=== PATIENT | female | born 1960 | race Asian ===

== ENCOUNTER 2024-11-28 09:55 | Observation (INO) | payer SELFPAY ==
[2024-11-28] VITALS (7 sets, daily range): BP systolic 118–140; BP diastolic 54–80; PULSE 59–87; RESP 14–22; TEMP 20.5–36.8; O2SAT 91–97; BMI 22.9
--- NOTE | ~2024-11-28 | XR_ITS ---
EXAMINATION: XR CHEST CLINICAL INFORMATION: sOB COMPARISON: None available. TECHNIQUE: PA and lateral views. FINDINGS: Prominence of the interstitial markings. Haziness in patchy opacity left lower hemithorax. Blunting of the costophrenic angles bilaterally. Heart silhouette is not enlarged. Calcified plaque thoracic aorta. Mild multilevel thoracic spondylosis. Osteopenia versus osteoporosis. Degenerative changes in the shoulders. XR/XR chest 2V IMPRESSION: Pulmonary edema with bilateral pleural effusions, (right. Superimposed acute airspace disease cannot be excluded. Electronically signed by: Andrew Ordaz MD 11/28/2024 10:54 AM EDT
--- NOTE | ~2024-11-28 | CT_ITS ---
EXAMINATION: CT ANGIOGRAM CHEST CLINICAL INFORMATION: SOB, abnormal CXR, recent travel COMPARISON: None available. TECHNIQUE: Multiple axial images were obtained through the chest after the administration of 65 mL of Omnipaque 350 intravenous contrast. Extensive vascular post-processing including two-dimensional and three-dimensional reformatted images were created and reviewed on an independent workstation. This CT examination was performed using dose optimization techniques as appropriate, variously including the following: *Automated exposure control *Adjustment of mA and/or kV according to patient size (this includes techniques or standardized protocols for targeted exams where dose is matched to indication/reason for exam; i.e. extremities or head) *Use of iterative reconstruction technique FINDINGS: QUALITY OF STUDY/CONTRAST BOLUS: Suboptimal with incomplete opacification of tertiary branches. PULMONARY ARTERIES: No central pulmonary emboli. Emboli of peripheral vessels cannot be excluded with any degree of certainty. THORACIC AORTA: No sign of aneurysm or other abnormality. There is mild atherosclerotic ossification. LUNGS AND PLEURA: Pulmonary vessels are enlarged. There are patchy opacities in the dependent lung bases. There is no pleural effusion. MEDIASTINUM: Unremarkable CORONARY ARTERY CALCIFICATION: Identified CHEST WALL/AXILLA: No axillary or internal mammary lymphadenopathy. UPPER ABDOMEN: Contrast refluxed from the right heart into the hepatic veins. However, there is no flattening of the interventricular septum. BONES: Unremarkable CT/CT angio chest PE protocol IMPRESSION: No filling defects are identified in the pulmonary arteries. Pulmonary vessels are mildly prominent and there is reflux of contrast into the hepatic veins raising question of pulmonary vascular congestion. Fleischner guidelines were followed. Electronically signed by: Elfego Reese MD 11/28/2024 01:48 PM EDT
--- NOTE | 2024-11-28 10:18 | ECG_ITS ---
Test Reason : SOB Blood Pressure : */* mmHG Vent. Rate : 72 BPM Atrial Rate : 72 BPM P-R Int : 132 ms QRS Dur : 72 ms QT Int : 404 ms P-R-T Axes : 61 40 45 degrees QTcB Int : 442 ms Normal sinus rhythm Low voltage QRS Borderline ECG No previous ECGs available Referred By: Rosita Truong Electronically Signed By: NAILA GAR
--- NOTE | 2024-11-28 10:29 | PC.NURSE ---
Patient is a 64 yo female with a pmh of hypothyroid and asthma who presents with c/o sob for the past 20 days. Was seen at a local and diagnosed with pneumonia and prescribed zithromax with miminal effect. Alert and oriented, primarily yoruba speaking. Lungs with diffuse wheezing throughout. Respirations even and non-labored. No sob noted. Abdomen soft, non-tender with positive bowel sounds. Positive pedal pulses with no edema.
[2024-11-28 10:31] LABS: MANUAL DIFF FLAG NO
[2024-11-28 10:33] LABS: Hematocrit 33.2 % (37.0-47.0); Hemoglobin 10.9 g/dl (12.0-16.0); Imm Gran Abs Auto 0.03 X10*3/uL (0.00-0.03); Imm Gran Pct Auto 0.3 % (0.0-0.4); Lymphocytes Absolute Auto 3.1 X10*3/uL (1.2-4.9); Mean Corpuscular HGB Conc 32.8 g/dl (31.0-35.0); Mean Corpuscular Hemoglobin 29.0 pg (27.0-33.0); Mean Corpuscular Volume 88.3 fL (80.0-98.0); NRBC Abs Auto 0.000 X10*3/uL (0.0-0.012); NRBC Pct Auto 0.0 /100WBC (0.0-0.2); Platelet Count 268 X10*3/uL (160-400); Red Blood Count 3.76 X10*6/uL (4.20-5.50); White Blood Count 8.9 X10*3/uL (4.8-10.8)
--- NOTE | 2024-11-28 10:43 | ED.SOB ---
HPI - SOB/Dyspnea General Chief Complaint: Dyspnea Stated Complaint: gen med Time Seen by Provider: 11/28/24 10:42 Source: patient, RN notes reviewed and old records reviewed Mode of arrival: ambulatory Limitations: no limitations History of Present Illness ED Provider: Jenni Hansen PA-C HPI Narrative: 64 yo female here visiting from [facility] for the last 3 weeks c/o worsening SOB and HERNANDEZ. She has history of longstanding smoking starting at age 8, quit 1 year ago. She has been in the [place] visiting her daughter for the last 20 days. She has been SOB since she got here from visiting her other child in [place]. She has asthma and has been using her albuterol inhaler without improvement. She was seen at Urgent Care 10 days ago and was prescribed azithromycin x5 days. She reported brief improvement with the antibiotics. She has had LE swelling that has waxed and waned since she arrived here, improved w/ leg elevation. Daugther reports chills at night, worsening HERNANDEZ and SOB for the last several days. She has a nonproductive cough. No chest pain, abdominal pain, N/V/D. No known sick contacts. MD elicited complaint: shortness of breath Pertinent past history: asthma Onset (ago): week(s) (3) Context: recent illness and recent travel Timing: progressively worsening Severity: moderate Exacerbating factors: lying flat, exertion, movement and coughing Relieving factors: bronchodilators Known history of: asthma Associated symptoms: cough, wheezing, orthopnea, lower extremity pain and chest congestion Treatment prior to arrival: none Related Data Home oxygen amount: none Allergies Allergy/AdvReac Type Severity Reaction Status Date / Time No Known Allergies Allergy Verified 11/28/24 10:12 Review of Systems Review of Systems: Yes all other systems are reviewed and are negative [facility] Past Medical History Medical History (Updated 11/28/24 @ 16:37 by Ravinder Lee MD) COPD (chronic obstructive pulmonary disease) Hypothyroid Social History Social History Alcohol intake: former Smoked in Last 30 Days: No Use of substances other than those prescribed or required for medical reasons: No Advance Directives: No Advance Directives Information Provided: No Physical Exam Exam: Exam: Appearance: Alert. Oriented X3. No acute distress. Head: normocephalic, atraumatic. Eyes: Pupils equal, round and reactive to light. ENT: Pharynx normal. No tonsillar swelling or exudate. Neck: Normal inspection. Neck supple. CVS: Normal heart rate and rhythm. Pulses normal. Respiratory: No respiratory distress. Breath sounds rest sounds coarse and rhonchorous throughout with prolonged expiratory phase Abdomen: Soft and nontender. +BS x4 Skin: Skin warm and dry. Normal skin color. Normal skin turgor. No rashes. Extremities: 1+ lower extremity edema. No joint swelling. Neuro/psych: Oriented X 3. No motor deficit. No sensory deficit. CN II-XII intact. Normal speech and cognition. Vital Signs: Vital Signs: Last Vital Signs Temp 98.2 F 11/28/24 15:09 Pulse 69 11/28/24 15:09 Resp 14 11/28/24 15:09 BP 140/80 H 11/28/24 15:09 Pulse Ox 94 11/28/24 15:09 O2 Del Method Room Air 11/28/24 15:09 BMI result Body Mass Index 22.9 Medications Administered Discontinued Medications Generic Name Dose Route Start Last Admin Trade Name Manuelq PRN Reason Stop Dose Admin Albuterol Sulfate 5 mg/ 0 mg 11/28/24 11:43 11/28/24 11:45 Albuterol/Ipratropium 3 ml INHALE 11/28/24 11:44 1 each ONCE ONE Administration Furosemide 20 mg 11/28/24 13:53 11/28/24 14:00 Furosemide 20 Mg/2 Ml Vial IVPUSH 11/28/24 13:54 20 mg ONCE ONE Administration Protocol Iohexol 100 ml 11/28/24 13:25 11/28/24 13:25 Iohexol 350 Mg/Ml 100 Ml Infus..Btl IV 11/28/24 13:26 65 ml ONCE ONE Administration Methylprednisolone Sodium Succinate 40 mg 11/28/24 11:34 11/28/24 11:43 Methylprednisolone Sod Succ 40 Mg/Ml Vial IVPUSH 11/28/24 11:35 40 mg ONCE ONE Administration Medical Decision Making Medical Decision Making MDM Narrative: 64-year-old female with history of asthma, former smoker, hypothyroidism who presents to the ER for evaluation of worsening HERNANDEZ and SOB for the last 3 weeks since traveling from [place]. She is status post a course of antibiotics with brief improvement in her shortness of breath and wheezing. She has had subjective fever and chills at night with a nonproductive cough. No known sick contacts. On exam today she has diffuse expiratory wheezes and rhonchi throughout. She is not hypoxic or struggling to breathe. Labs show a mild normocytic anemia no leukocytosis. She has an elevated troponin of 60. Her EKG does not have any ischemic changes. No known cardiomyopathy or CAD per family. Bronchodilator protocol and IV steroids ordered. Chest x-ray is showing pulmonary edema with bilateral pleural effusions. A right-sided airspace opacity could not be excluded. Given her recent travel, reported leg swelling a CTA was done which does not show any pulmonary embolism. There are patchy opacities in the dependent lung bases, most consistent with pulmonary vascular congestion. No focal infiltrate to suggest bacterial pneumonia. Hold off on antibiotics for now. IV Lasix ordered. She was ambulated in the emergency department on room air and desaturated to 91%. She was subjectively short of breath Will plan to admit to the hospital for further management. Differential Diagnosis Differential Diagnoses: The differential diagnosis associated with the presentation includes Asthma exacerbation, COPD exacerbation, heart failure exacerbation, pneumonia, acute viral illness, PE, ILD, pneumonitis Admission/Observation Consideration of admission/observation: Escalation of care including admission/observation considered Consult Healthcare Provider Management of the patient was discussed with: Hospitalist Lab Data MDM Lab Attestation statement: I reviewed the patient's lab results. no leukocytosis, mild anemia, elevated troponin and pro-bnp 11/28/24 10:26 11/28/24 10:26 Labs: Lab Results 11/28/24 11/28/24 11/28/24 Range/Units 10:26 11:20 11:21 WBC 8.9 (4.8-10.8) X10*3/uL RBC 3.76 L (4.20-5.50) X10*6/uL Hgb 10.9 L (12.0-16.0) g/dl Hct 33.2 L (37.0-47.0) % MCV 88.3 (80.0-98.0) fL MCH 29.0 (27.0-33.0) pg MCHC 32.8 (31.0-35.0) g/dl RDW 12.9 (11.0-16.0) % Plt Count 268 (160-400) X10*3/uL MPV 8.9 L (9.4-12.3) fL Immature Gran % (Auto) 0.3 (0.0-0.4) % Neut % (Auto) 44.2 L (45-73) % Lymph % (Auto) 34.7 (20-40) % [place] % (Auto) 8.1 (2-11) % Eos % (Auto) 12.0 H (0-4) % Baso % (Auto) 0.7 (0-2) % Lymph # (Auto) 3.1 (1.2-4.9) X10*3/uL [place] # (Auto) 0.7 (0.1-1.2) X10*3/uL Eos # (Auto) 1.1 H (0.0-0.4) X10*3/uL Baso # (Auto) 0.1 (0.0-0.2) X10*3/uL Abs Immat Gran (auto) 0.03 (0.00-0.03) X10*3/uL Absolute Neuts (auto) 3.9 (2.0-8.3) x10*3/uL Absolute Nucleated RBC 0.000 (0.0-0.012) X10*3/uL Nucleated RBC % (auto) 0.0 (0.0-0.2) /100WBC Sodium 141 (135-145) mmol/L Potassium 4.2 (3.3-5.1) mmol/L Chloride 109 H (96-108) mmol/L Carbon Dioxide 27 (22-29) mmol/L Anion Gap 9 L (12-20) BUN 11 (9-16) mg/dL Creatinine 0.66 (0.5-1.4) mg/dL Estim Creat Clear Calc 70.3 Estimated GFR > 60 Random Glucose 116 H (60-115) mg/dL Estimat Average Glucose 134 mg/dL Hemoglobin A1c % 6.3 H (<6.0) % Calcium 9.0 (8.4-10.2) mg/dL Total Bilirubin 0.5 (0.0-1.0) mg/dL AST 25 (5-31) U/L ALT 17 (0-31) U/L Alkaline Phosphatase 92 (39-117) U/L Troponin I High Sens 61.0 H* (<3.5-17.0) ng/L NT-Pro-B Natriuret Pep 338.9 H (<300) pg/mL Total Protein 6.9 (6.5-8.0) g/dL Albumin 3.7 (3.5-5.0) g/dL Procalcitonin 0.02 ng/mL COVID-19 (DANIELLE) Negative (Negative) COVID-19 Clin Com See Note Influenza Type A (QUINTON) Negative (Negative) Influenza Type B (QUINTON) Negative (Negative) Influenza A & B Note See Note 11/28/24 Range/Units 12:31 WBC (4.8-10.8) X10*3/uL RBC (4.20-5.50) X10*6/uL Hgb (12.0-16.0) g/dl Hct (37.0-47.0) % MCV (80.0-98.0) fL MCH (27.0-33.0) pg MCHC (31.0-35.0) g/dl RDW (11.0-16.0) % Plt Count (160-400) X10*3/uL MPV (9.4-12.3) fL Immature Gran % (Auto) (0.0-0.4) % Neut % (Auto) (45-73) % Lymph % (Auto) (20-40) % [place] % (Auto) (2-11) % Eos % (Auto) (0-4) % Baso % (Auto) (0-2) % Lymph # (Auto) (1.2-4.9) X10*3/uL [place] # (Auto) (0.1-1.2) X10*3/uL Eos # (Auto) (0.0-0.4) X10*3/uL Baso # (Auto) (0.0-0.2) X10*3/uL Abs Immat Gran (auto) (0.00-0.03) X10*3/uL Absolute Neuts (auto) (2.0-8.3) x10*3/uL Absolute Nucleated RBC (0.0-0.012) X10*3/uL Nucleated RBC % (auto) (0.0-0.2) /100WBC Sodium (135-145) mmol/L Potassium (3.3-5.1) mmol/L Chloride (96-108) mmol/L Carbon Dioxide (22-29) mmol/L Anion Gap (12-20) BUN (9-16) mg/dL Creatinine (0.5-1.4) mg/dL Estim Creat Clear Calc Estimated GFR Random Glucose (60-115) mg/dL Estimat Average Glucose mg/dL Hemoglobin A1c % (<6.0) % Calcium (8.4-10.2) mg/dL Total Bilirubin (0.0-1.0) mg/dL AST (5-31) U/L ALT (0-31) U/L Alkaline Phosphatase (39-117) U/L Troponin I High Sens 62.8 H* (<3.5-17.0) ng/L NT-Pro-B Natriuret Pep (<300) pg/mL Total Protein (6.5-8.0) g/dL Albumin (3.5-5.0) g/dL Procalcitonin ng/mL COVID-19 (DANIELLE) (Negative) COVID-19 Clin Com Influenza Type A (QUINTON) (Negative) Influenza Type B (QUINTON) (Negative) Influenza A & B Note Independent Interpretation I performed an independent interpretation of an: EKG, Plain X-Ray and CT Scan Interpretation: CTA without PE, dependent ground glass opacities bilaterally cxr w/ bibasilar opacities/effusions ekg with normal sinus rhythm, HR 72 bpm, low voltage QRS, normal QTC, no ST segment elevations or depressions, isolated twi in Vi Radiology Impression Discussion of test interpretation with radiology: I have reviewed the radiologist's reading. Prescription Management I considered prescription management with: Antibiotic and Other Chronic Conditions Patient?s care impacted by: Other (asthma, suspect underlying COPD) Social Determinants Patient?s care significantly limited by Social Determinants of Health including: Problems related to primary support group and Other Social Determinant of Health Critical Care Time Critical Care Time Critical Care Time: Yes Total Critical Care Time: 33 Attestation: I have personally provided critical care time exclusive of time spent on separately billable procedures. Time includes review of lab data, radiology results, discussion with consultants, and monitoring for potential decompensation. Intervention performed as documented. Discharge Plan Discharge Clinical Impression: Asthma with exacerbation Qualifiers: Asthma severity: unspecified severity Asthma persistence: unspecified Qualified Code(s): J45.901 - Unspecified asthma with (acute) exacerbation Pulmonary edema Qualifiers: Chronicity: acute Qualified Code(s): J81.0 - Acute pulmonary edema Patient Disposition: Admitted As Inpatient
[2024-11-28 10:48] LABS: Alanine Aminotransferase 17 U/L (0-31); Albumin Level 3.7 g/dL (3.5-5.0); Alkaline Phosphatase 92 U/L (39-117); Anion Gap 9 (12-20); Aspartate Amino Transferase 25 U/L (5-31); Blood Urea Nitrogen 11 mg/dL (9-16); Calcium 9.0 mg/dL (8.4-10.2); Carbon Dioxide 27 mmol/L (22-29); Chloride 109 mmol/L (96-108); Creatinine Clr Calc Pharmacy 70.3; Estimated Glomerular Filt Rate > 60; Potassium 4.2 mmol/L (3.3-5.1); Sodium 141 mmol/L (135-145); Total Protein 6.9 g/dL (6.5-8.0)
[2024-11-28 10:58] LABS: Troponin-I High Sensitivity 61.0 ng/L (<3.5-17.0)
[2024-11-28 11:31] LABS: NT Pro B Type Natriuretic Pept 338.9 pg/mL (<300)
--- NOTE | 2024-11-28 11:39 | PC.NURSE ---
Placed on clinical academic allergist and NSR noted
[2024-11-28] MEDS: Albuterol Sulfate 5 MG, Albuterol/Iprat 2.5/0.5MG 3 ML 3 ML INHALE (11:45)
[2024-11-28 11:49] LABS: COVID-19 Test Negative (Negative); IDNOW Serial# 55D5AD1C
[2024-11-28 11:55] LABS: IDNOW Serial# 58CA691E; Influenza B2 Negative (Negative)
--- NOTE | 2024-11-28 12:30 | MHC.EDTECH ---
Patient ambulated and experienced SOB , Oxygen saturation at 91-92and heart rate of 103.ANGELA Hardy aware
[2024-11-28 12:36] LABS: Procalcitonin 0.02 ng/mL
[2024-11-28 13:01] LABS: Troponin-I High Sensitivity 62.8 ng/L (<3.5-17.0)
[2024-11-28] MEDS: iohexoL 350 MG/ML 100 ML INFUS..BTL IV (13:25)
[2024-11-28] MEDS: Furosemide 20 MG/2 ML VIAL IVPUSH (14:00)
--- NOTE | 2024-11-28 16:35 | P.HPHOSP_ITS ---
History of Present Illness Date of Service: 11/28/24 Chief Complaint: sob 64F PMH hypothyroid, mild intermittent asthma/COPD presented with shortness of breath. Shortness of breath began about 1 month prior to presentation. Worse on exertion, denies orthopnea, denies chest pain, reports subjective fevers, nonproductive cough, audible wheezing. Quit smoking 1 year prior to presentation. Uses albuterol but no maintenance inhalers, went to urgent care and was given antibiotics without resolution of symptoms so came to ED. In ED CTA of chest negative for PE but did show mildly prominent pulmonary vessels possible pulmonary vascular congestion. Mildly elevated BNP, and troponins. Review of Systems 2 Review of Systems: Yes all other systems are reviewed and are negative [facility] Medical History (Updated 11/28/24 @ 16:37 by Ravinder Lee MD) COPD (chronic obstructive pulmonary disease) Hypothyroid Social History Alcohol intake: former Smoked in Last 30 Days: No Use of substances other than those prescribed or required for medical reasons: No Advance Directives: No Advance Directives Information Provided: No Meds Allergies Allergy/AdvReac Type Severity Reaction Status Date / Time No Known Allergies Allergy Verified 11/28/24 10:12 Active Medications: Current Medications Acetaminophen (Acetaminophen 325 Mg Tablet) 650 mg PO Q6H PRN PRN Reason: Pain, Mild 1-3,fever,headache Albuterol/Ipratropium (Albuterol/Iprat 2.5/0.5mg 3 Ml Ampul.Neb) 3 ml INHALE RQ4H WHILE AWAKE PRN PRN Reason: sob Azithromycin (Azithromycin 500 Mg Tablet) 500 mg PO Q24H BARBARA Calcium Carbonate (Calcium Carbonate 750 Mg Tab.Chew) 750 mg PO Q4H PRN PRN Reason: Heartburn Enoxaparin Sodium (Enoxaparin Sodium 40 Mg/0.4 Ml Syringe) 40 mg SUBCUT Q24H BARBARA Furosemide (Furosemide 40 Mg/4 Ml Vial) 40 mg IVPUSH BID@0900,1800 BARBARA; Protocol Magnesium Hydroxide (Milk Of Magnesia 30 Ml Oral.Susp) 30 ml PO DAILY PRN PRN Reason: Constipation Melatonin (Melatonin 3 Mg Tablet) 6 mg PO BEDTIME PRN PRN Reason: Insomnia Methylprednisolone Sodium Succinate (Methylprednisolone Sod Succ 40 Mg/Ml Vial) 40 mg IVPUSH Q12H BARBARA Sodium Chloride (0.9 % Sodium Chloride Flush 3 Ml Syringe) 3 ml IVFLUSH QSHIFT [facility] Physical Exam 2 Vital Signs and Narrative: Vital Signs: Last Vital Signs Temp 98.2 F 11/28/24 15:09 Pulse 69 11/28/24 15:09 Resp 14 11/28/24 15:09 BP 140/80 H 11/28/24 15:09 Pulse Ox 94 11/28/24 15:09 O2 Del Method Room Air 11/28/24 15:09 BMI result Body Mass Index 22.9 General: AO X 3, no acute distress Resp: wheezing bilateral, no accessory muscles used CVS: S1,S2,RRR GI: soft, non tender, non distended Neuro: motor grossly intact, alert Psych: appropriate affect, appropriate insight Results Labs 11/28/24 10:26 11/28/24 10:26 Labs: Laboratory Results - last 24 hr 11/28/24 11/28/24 11/28/24 10:26 11:20 11:21 MCV 88.3 MCH 29.0 MCHC 32.8 RDW 12.9 Plt Count 268 MPV 8.9 L Immature Gran % (Auto) 0.3 Neut % (Auto) 44.2 L Lymph % (Auto) 34.7 [place] % (Auto) 8.1 Eos % (Auto) 12.0 H Baso % (Auto) 0.7 Lymph # (Auto) 3.1 [place] # (Auto) 0.7 Eos # (Auto) 1.1 H Baso # (Auto) 0.1 Abs Immat Gran (auto) 0.03 Absolute Neuts (auto) 3.9 Absolute Nucleated RBC 0.000 Nucleated RBC % (auto) 0.0 Anion Gap 9 L Estim Creat Clear Calc 70.3 Estimated GFR > 60 Random Glucose 116 H Calcium 9.0 Total Bilirubin 0.5 AST 25 ALT 17 Alkaline Phosphatase 92 Troponin I High Sens 61.0 H* NT-Pro-B Natriuret Pep 338.9 H Total Protein 6.9 Albumin 3.7 Procalcitonin 0.02 COVID-19 (DANIELLE) Negative COVID-19 Clin Com See Note Influenza Type A (QUINTON) Negative Influenza Type B ([facility]ON) Negative Influenza A & B Note See Note 11/28/24 12:31 MCV MCH MCHC RDW Plt Count MPV Immature Gran % (Auto) Neut % (Auto) Lymph % (Auto) [place] % (Auto) Eos % (Auto) Baso % (Auto) Lymph # (Auto) [place] # (Auto) Eos # (Auto) Baso # (Auto) Abs Immat Gran (auto) Absolute Neuts (auto) Absolute Nucleated RBC Nucleated RBC % (auto) Anion Gap Estim Creat Clear Calc Estimated GFR Random Glucose Calcium Total Bilirubin AST ALT Alkaline Phosphatase Troponin I High Sens 62.8 H* NT-Pro-B Natriuret Pep Total Protein Albumin Procalcitonin COVID-19 (DANIELLE) COVID-19 Clin Com Influenza Type A (QUINTON) Influenza Type B (QUINTON) Influenza A & B Note Imaging Radiologist's Impressions: Impressions Chest X-Ray 11/28/24 10:45 IMPRESSION: Pulmonary edema with bilateral pleural effusions, (right. Superimposed acute airspace disease cannot be excluded. Electronically signed by: Andrew Ordaz MD 11/28/2024 10:54 AM EDT RP Chest CTA 11/28/24 13:22 IMPRESSION: No filling defects are identified in the pulmonary arteries. Pulmonary vessels are mildly prominent and there is reflux of contrast into the hepatic veins raising question of pulmonary vascular congestion. Fleischner guidelines were followed. Electronically signed by: Elfego Reese MD 11/28/2024 01:48 PM EDT RP Assessment and Plan (1) COPD (chronic obstructive pulmonary disease): Status: Acute Plan 64F PMH hypothyroid, mild intermittent asthma/COPD presented with shortness of breath COPD/mild intermittent asthma with acute decompensation Steroids, DuoNebs, azithromycin Elevated troponin Denies chest pain, EKG nonischemic Check risk factors (A1c, lipids) Follow up repeat troponin Acute unspecified CHF IV Lasix, check echo Hypothyroid Check TSH, continue thyroid supplement DVT prophylaxis with Lovenox Full code Quality Stroke Does the patient have a stroke diagnosis?: No VTE Prior VTE?: No VTE Risk Level:: Medical - moderate - high VTE Device Contraindication: Treatment Not Indicated VTE Drug Contraindication: N/A - Med Ordered
[2024-11-28 16:44] LABS: Hemoglobin A1C 130.1153 umol/L; Total Hemoglobin (HGBA1C) 2883.2160 umol/L
[2024-11-28 17:10] LABS: Cholesterol 181 mg/dL (<200); HDL Cholesterol 49 mg/dL (>40); Triglycerides 71 mg/dL (<150)
[2024-11-28] MEDS: Furosemide 40 MG/4 ML VIAL IVPUSH (18:04)
[2024-11-28 18:05] LABS: Free T4 (Free Thyroxine) 1.36 ng/dL (0.71-1.85)
--- NOTE | 2024-11-28 18:18 | PHA.MEDREC ---
Addendum entered by Micah Sheffield PharmD 11/28/24 18:28: reviewed Original Note: Pharmacy Consult ? Medication Reconciliation Pharmacy has completed the medication reconciliation. Spoke to patient daughter at bedside to confirm patient medications. Daughter had patients rx bottle from [facility]. Patient states she takes Thyronom 75 mg 5 days a week and Thyronom 100 mg 2 days a week on Fridays and Saturdays.
[2024-11-29 04:21] VITALS: BP 126/75; PULSE 68; RESP 16; TEMP 36.6; O2SAT 95
--- NOTE | 2024-11-29 07:00 | CA_ITS ---
Transthoracic Echocardiogram Patient (Last, First, Middle): Alia Cook Devi Gender: F Date of : 1960 Age: 64 Procedure Date: 11/29/2024 Procedure Type: Transthoracic Echocardiogram Location: ER Height: 160.02 cm Weight: 58.51 kg BSA: 1.61 m2 Heart Rate: bpm BP: 126 / 73 mmHg Traffic Supervisor: Referring MD: Ravinder Lee MD Symptoms: chf Study Quality: Good ECG Rhythm: Sinus Conclusions: - The left ventricular systolic function is normal. The calculated ejection fraction is 64% by biplane method. - No obvious valvular pathology seen on this study. Findings Left Ventricle Normal left ventricular cavity size. There is mildly increased left ventricular wall thickness. The left ventricular systolic function is normal. The calculated ejection fraction is 64% by biplane method. There is no evidence of regional wall motion abnormalities. Diastolic function is normal for age. Right Ventricle Normal right ventricular cavity size and systolic function. Atria Both atria are normal in size. Aortic Valve The aortic valve was not well visualized. There is no aortic valve stenosis. There is no aortic valve regurgitation. Mitral Valve The mitral valve appears normal. There is no mitral valve regurgitation. There is no mitral valve stenosis. Pulmonic Valve The pulmonic valve is likely normal. There is mild thickening of the pulmonic valve. Tricuspid Valve There is trace tricuspid valve regurgitation. There is no evidence of pulmonary hypertension. Great Vessels The asc aorta is normal in size. Venous The inferior vena cava is normal in size and collapses greater than 50% with inspiration. Pericardium/Pleural There is no evidence of pericardial effusion. Prior Study Comparison No prior study available for comparison. Recommendations, Care & Conclusions No obvious valvular pathology seen on this study. Measurements 2D Linear Measurements IVSd: 1.05 0.6-0.9/0.6-1.0 cm LVIDd: 4.33 3.9-5.3/4.2-5.9 cm LVIDd Index: 2.69 2.4-3.2/2.2-3.1 cm/m2 LVIDs: 2.77 2.0-3.6 cm LVPWd: 1.05 0.7-1.1 cm Ao Root: 3.30 2.1-3.5 cm LA Diam: 3.70 2.7-3.8/3.0-4.0 cm LAIDs Index: 2.30 1.5-2.3 cm/m2 LV Mass: 192.05 67-162/88-224 g LV Mass Index: 119.29 43-95/49-115 g/m2 LVOT Diam: 2.00 3.0+(-)1.3 cm 2D Systolic Function EF 4C: 68.20 >55% EF 2C: 62.80 >55% EF BiP: 64.10 >55% Mitral Valve MV Pk E: 0.64 MV PK A: 0.70 MV Decel Time: 192.00 E/A: 0.90 E'Lateral: 8.49 E'Medial: 6.96 E/E' Med: 9.20 E/E' Lat: 7.50 PHT: 56.00 MVA PHT: 3.93 Decel Scott: 3.32 Aortic Valve AoV Pk Miles: 1.54 AoV Mn Miles: 0.98 AoV VTI: 0.32 AoV Pk Grad: 9.00 Aov Mn Grad: 5.00 JULIANA Cont.VTI: 1.87 LVOT LVOT Pk Miles: 1.04 LVOT Mn Miles: 0.65 LVOT VTI: 0.19 LVOT Pk Grad: 4.00 LVOT Mn Grad: 2.00 LVOT Diam: 2.00 LVOT Area: 3.14 Diastolic Function MV Pk E: 0.64 MV Pk A: 0.70 E/A: 0.90 E'Medial: 6.96 E/E' Med: 9.20 E' Laterial: 8.49 E/E' Lat: 7.50 Right Ventricle TAPSE (mm): 21.00 TVS' Miles: 12.00 Tricuspid Valve TR Pk Miles: 1.77 TR Pk Grad: 13.00 RA Press: 3.00 RVSP: 16.00 Great Vessels Aorta Ao Root-2D: 3.30 2.0-3.7 cm Ao Asc: 2.90 2.1-3.4 cm Pulmonary Valve PV Pk Miles: 1.09 Peak PV Grad: 5.00 Updated in Other Vendor System with Status of Final Juma Erwin MD electronically signed on 11/29/2024 12:24:41 PM with status of Final
[2024-11-29 07:32] LABS: Hematocrit 35.2 % (37.0-47.0); Hemoglobin 11.8 g/dl (12.0-16.0); Mean Corpuscular HGB Conc 33.5 g/dl (31.0-35.0); Mean Corpuscular Hemoglobin 28.8 pg (27.0-33.0); Mean Corpuscular Volume 85.9 fL (80.0-98.0); NRBC Abs Auto 0.000 X10*3/uL (0.0-0.012); NRBC Pct Auto 0.0 /100WBC (0.0-0.2); Platelet Count 323 X10*3/uL (160-400); Red Blood Count 4.10 X10*6/uL (4.20-5.50); White Blood Count 13.2 X10*3/uL (4.8-10.8)
[2024-11-29 07:45] LABS: Anion Gap 13 (12-20); Blood Urea Nitrogen 22 mg/dL (9-16); Calcium 9.3 mg/dL (8.4-10.2); Carbon Dioxide 26 mmol/L (22-29); Chloride 106 mmol/L (96-108); Creatinine Clr Calc Pharmacy 64.4; Estimated Glomerular Filt Rate > 60; Magnesium 2.0 mg/dL (1.6-2.6); Potassium 4.2 mmol/L (3.3-5.1); Sodium 141 mmol/L (135-145)
[2024-11-29 07:57] LABS: Troponin-I High Sensitivity 66.3 ng/L (<3.5-17.0)
[2024-11-29 08:00] VITALS: BP 132/73; PULSE 88; RESP 16; TEMP 36.6; O2SAT 96
--- NOTE | 2024-11-29 08:26 | HO.PM.IMPN ---
Subjective Subjective Date of Service: 11/29/24 Interval History: sob improved Physical Exam Exam: Exam: General: AO X 3, no acute distress Resp: CTA bilateral, no accessory muscles used CVS: S1,S2,RRR GI: soft, non tender, non distended Neuro: motor grossly intact, alert Psych: appropriate affect, appropriate insight Vital Signs: Vital Signs: Last Vital Signs Temp 97.9 F 11/29/24 04:21 Pulse 68 11/29/24 04:21 Resp 16 11/29/24 04:21 BP 126/75 11/29/24 04:21 Pulse Ox 95 11/29/24 04:21 O2 Del Method Room Air 11/29/24 04:21 BMI result Body Mass Index 22.9 Objective Data Active Medications Acetaminophen (Acetaminophen 325 Mg Tablet) 650 mg PO Q6H PRN PRN Reason: Pain, Mild 1-3,fever,headache Albuterol/Ipratropium (Albuterol/Iprat 2.5/0.5mg 3 Ml Ampul.Neb) 3 ml INHALE RQ4H WHILE AWAKE PRN PRN Reason: sob Azithromycin (Azithromycin 500 Mg Tablet) 500 mg PO Q24H [facility] Last Admin: 11/28/24 17:03 Dose: 500 mg Documented By: FLETCHER Calcium Carbonate (Calcium Carbonate 750 Mg Tab.Chew) 750 mg PO Q4H PRN PRN Reason: Heartburn Enoxaparin Sodium (Enoxaparin Sodium 40 Mg/0.4 Ml Syringe) 40 mg SUBCUT Q24H [facility] Furosemide (Furosemide 40 Mg/4 Ml Vial) 40 mg IVPUSH BID@0900,1800 ABRBARA; Protocol Last Admin: 11/28/24 18:04 Dose: 40 mg Documented By: SCIRPGIANFRANCO Levothyroxine Sodium (Levothyroxine Sodium 100 Mcg Tablet) 100 mcg PO FRSA [facility] Magnesium Hydroxide (Milk Of Magnesia 30 Ml Oral.Susp) 30 ml PO DAILY PRN PRN Reason: Constipation Melatonin (Melatonin 3 Mg Tablet) 6 mg PO BEDTIME PRN PRN Reason: Insomnia Methylprednisolone Sodium Succinate (Methylprednisolone Sod Succ 40 Mg/Ml Vial) 40 mg IVPUSH Q12H [facility] Sodium Chloride (0.9 % Sodium Chloride Flush 3 Ml Syringe) 3 ml IVFLUSH QSHIFT [facility] Last Admin: 11/29/24 00:29 Dose: Not Given Documented By: BRIDGER Non-Admin Reason: Patient Asleep Labs 11/29/24 07:11 11/29/24 07:11 Labs: Laboratory Results - last 24 hr 11/28/24 11/28/24 11/28/24 10:26 11:20 11:21 MCV 88.3 MCH 29.0 MCHC 32.8 RDW 12.9 Plt Count 268 MPV 8.9 L Immature Gran % (Auto) 0.3 Neut % (Auto) 44.2 L Lymph % (Auto) 34.7 [place] % (Auto) 8.1 Eos % (Auto) 12.0 H Baso % (Auto) 0.7 Lymph # (Auto) 3.1 [place] # (Auto) 0.7 Eos # (Auto) 1.1 H Baso # (Auto) 0.1 Abs Immat Gran (auto) 0.03 Absolute Neuts (auto) 3.9 Absolute Nucleated RBC 0.000 Nucleated RBC % (auto) 0.0 Anion Gap 9 L Estim Creat Clear Calc 70.3 Estimated GFR > 60 Random Glucose 116 H Estimat Average Glucose 134 Hemoglobin A1c % 6.3 H Calcium 9.0 Magnesium Total Bilirubin 0.5 AST 25 ALT 17 Alkaline Phosphatase 92 Troponin I High Sens 61.0 H* NT-Pro-B Natriuret Pep 338.9 H Total Protein 6.9 Albumin 3.7 Triglycerides 71 Cholesterol 181 LDL Cholesterol, Calc 118 H HDL Cholesterol 49 Procalcitonin 0.02 TSH < 0.01 L Free T4 1.36 COVID-19 (DANIELLE) Negative COVID-19 Clin Com See Note Influenza Type A (QUINTON) Negative Influenza Type B (QUINTON) Negative Influenza A & B Note See Note 11/28/24 11/29/24 12:31 07:11 MCV 85.9 MCH 28.8 MCHC 33.5 RDW 12.8 Plt Count 323 MPV 9.0 L Immature Gran % (Auto) Neut % (Auto) Lymph % (Auto) [place] % (Auto) Eos % (Auto) Baso % (Auto) Lymph # (Auto) [place] # (Auto) Eos # (Auto) Baso # (Auto) Abs Immat Gran (auto) Absolute Neuts (auto) Absolute Nucleated RBC 0.000 Nucleated RBC % (auto) 0.0 Anion Gap 13 Estim Creat Clear Calc 64.4 Estimated GFR > 60 Random Glucose 123 H Estimat Average Glucose Hemoglobin A1c % Calcium 9.3 Magnesium 2.0 Total Bilirubin AST ALT Alkaline Phosphatase Troponin I High Sens 62.8 H* 66.3 H* NT-Pro-B Natriuret Pep Total Protein Albumin Triglycerides Cholesterol LDL Cholesterol, Calc HDL Cholesterol Procalcitonin TSH Free T4 COVID-19 (DANIELLE) COVID-19 Clin Com Influenza Type A (QUINTON) Influenza Type B (QUINTON) Influenza A & B Note Assessment and Plan (1) Asthma with exacerbation: Status: Acute Plan 64F PMH hypothyroid, mild intermittent asthma/COPD presented with shortness of breath COPD/mild intermittent asthma with acute decompensation Steroids, DuoNebs, azithromycin, imprving Elevated troponin Denies chest pain, EKG nonischemic Acute unspecified CHF IV Lasix, check echo Hypothyroid low tsh normal t4, no overt signs of thyrotoxicosis, decrease levothyroxing to 100mcg daily, repeat tsh in 4 weeks DVT prophylaxis with Lovenox Full code reason for continued hospitalization: awaiting echo Quality Stroke Does the patient have a stroke diagnosis?: No VTE Prior VTE?: No VTE Risk Level:: Medical - moderate - high VTE Device Contraindication: Treatment Not Indicated VTE Drug Contraindication: N/A - Med Ordered
[2024-11-29] MEDS: 0.9 % Sodium Chloride Flush 3 ML SYRINGE IVFLUSH (09:20)
[2024-11-29] MEDS: Furosemide 40 MG/4 ML VIAL IVPUSH (09:20)
--- NOTE | 2024-11-29 12:38 | PM.DS ---
DS: Providers Provider Date of Service: 11/29/24 Date of admission: 11/28/24 16:28 Date of discharge: 11/29/24 Primary care physician: None Physician DS: Diagnosis Discharge Diagnosis (1) Asthma with exacerbation: Status: Acute DS: Summary Hospital Course Hospital Course: from initial hpi: 64F PMH hypothyroid, mild intermittent asthma/COPD presented with shortness of breath. Shortness of breath began about 1 month prior to presentation. Worse on exertion, denies orthopnea, denies chest pain, reports subjective fevers, nonproductive cough, audible wheezing. Quit smoking 1 year prior to presentation. Uses albuterol but no maintenance inhalers, went to urgent care and was given antibiotics without resolution of symptoms so came to ED. In ED CTA of chest negative for PE but did show mildly prominent pulmonary vessels possible pulmonary vascular congestion. Mildly elevated BNP, and troponins. hospital course: Patient was admitted for COPD and mild intermittent asthma with acute decompensation. Was treated with steroids, DuoNebs, azithromycin and had significant improvement. She was noted to have elevated troponin and some interstitial prominence on chest x-ray. Treated with IV Lasix now echocardiogram was unremarkable. For elevated troponin had no chest pain EKG was nonischemic should follow up with Cardiology as outpatient. For hypothyroid was noted to have low TSH and normal T4 there was no overt signs of thyrotoxicosis, levothyroxine should be decreased to 100 mcg daily and repeat TSH in 1 month. Time Attestation Discharge Coordination Time (in mins): 33 Quality: Safe Use of Opioids Does Pt have an Active Cancer Diagnosis on the Problem List?: No Quality: Stroke Does the patient have a stroke diagnosis?: No Physical Exam Exam: Exam: General: AO X 3, no acute distress Resp: CTA bilateral, no accessory muscles used CVS: S1,S2,RRR GI: soft, non tender, non distended Neuro: motor grossly intact, alert Psych: appropriate affect, appropriate insight Vital Signs: Vital Signs: Last Vital Signs Temp 98 F 11/29/24 08:00 Pulse 88 11/29/24 08:00 Resp 16 11/29/24 08:00 BP 132/73 11/29/24 08:00 Pulse Ox 96 11/29/24 08:00 O2 Del Method Room Air 11/29/24 08:00 BMI result Body Mass Index 22.9 DS: Data Data Completed and Pending Labs on day of discharge: Laboratory Results - last 24 hr 11/28/24 11/28/24 11/29/24 10:26 12:31 07:11 WBC 13.2 H RBC 4.10 L Hgb 11.8 L Hct 35.2 L MCV 85.9 MCH 28.8 MCHC 33.5 RDW 12.8 Plt Count 323 MPV 9.0 L Absolute Nucleated RBC 0.000 Nucleated RBC % (auto) 0.0 Sodium 141 Potassium 4.2 Chloride 106 Carbon Dioxide 26 Anion Gap 13 BUN 22 H Creatinine 0.72 Estim Creat Clear Calc 64.4 Estimated GFR > 60 Random Glucose 123 H Estimat Average Glucose 134 Hemoglobin A1c % 6.3 H Calcium 9.3 Magnesium 2.0 Troponin I High Sens 62.8 H* 66.3 H* Triglycerides 71 Cholesterol 181 LDL Cholesterol, Calc 118 H HDL Cholesterol 49 TSH < 0.01 L Free T4 1.36 Discharge Plan Discharge Anticipated Discharge Date/Time: 11/29/24 12:36 Patient Disposition: Home, Self-Care Discharge Diagnosis: copd/asthma Referrals: Physician,Uma [Primary Care Provider, Medical] - 1 Week Juma Erwin MD [Physician, Cardiology] - 1 Week Referral Note: elevated trop Discharge Medications: New azithromycin 500 mg Tablet 500 mg PO Q24H 5 Days Qty: 5 0RF prednisone 20 mg tablet 40 mg PO DAILY Qty: 10 0RF Continued levothyroxine 100 mcg Tablet 100 mcg PO FRSA albuterol sulfate [Ventolin HFA] 90 mcg/actuation Hfa Aerosol Inhaler 2 - 3 puff INHALATION BID PRN (Reason: Shortness Of Breath Or Wheezing) Discontinued levothyroxine 75 mcg Tablet 75 mcg PO SUMOTUWETH Discharge Orders: Discharge Order (Routine); Ordered 11/29/24 Ordered By: Ravinder Lee Diet: Advance to usual diet Activity on Discharge: As tolerated Stand Alone Forms: Patient Portal Discharge page Print Language: Italian Other Ambulatory Orders: TSH reflex Free T4 (Routine) Timeframe: 1 Month Facility: [facility] - Location: Laboratory Ordered By: Ravinder Lee Care Plan Goals: recovery Health Concerns: copd/asthma, low tsh Plan of Treatment: 5 days prednsione and azithromycin decrease levothyroxine to 100mcg daily, recheck tsh in 1 month Assessment: see above
[2024-11-29 13:24] VITALS: BP 123/61; PULSE 85; RESP 16; TEMP 36.4; O2SAT 98
--- NOTE | 2024-11-29 13:37 | MHC.CM.PN ---
CM ATTEMPTED TO MEET WITH PT WHO WAS SLEEPING CM ATTEMPTED TO REACH HER DAUGHTER, GHAZAL [phone], A VM WAS LEFT REQUESTING A RETURN CALL AND DELIVERING THE OBSERVATION NOTICE PT HAS BEEN CLEARED TO [place] [facility] TODAY WITH NO SERVICES ORDERED
[2024-11-29 15:31] VITALS: BP 122/60; PULSE 77; RESP 16; TEMP 36.7; O2SAT 100
== END 2024-11-29 15:38 | disposition home or self-care (01) ==
LOC: HO.ED 15:47 → HO.EDOVER 16:29 → HO.IMC 20:34 → HO.EDOVER 20:57
PROVIDERS: Physician Assistant; Physician Assistant Medical; Admitting Provider Internal Medicine; Emergency Provider Emergency Medicine; Visit Provider Internal Medicine
DX: J45.901 Unspecified asthma with (acute) exacerbation (principal); R06.02 Shortness of breath; J81.0 Acute pulmonary edema; R91.8 Other nonspecific abnormal finding of lung field; J44.9 Chronic obstructive pulmonary disease, unspecified; R79.89 Other specified abnormal findings of blood chemistry; I50.9 Heart failure, unspecified; E03.9 Hypothyroidism, unspecified
CPT/HCPCS: 36415; 71046; 71275; 80048; 80053; 80061; 83036; 83735; 83880; 84145; 84439; 84443; 84484; 85025; 85027; 87502; 87635; 93005; 93306; 94640; 96372; 96374; 96375; 96376; 99222; 99285; J1650; J1938; J2919; Q9967

== ENCOUNTER → 2024-11-28 10:18 | Outpatient (BNV) | payer OTHER, SELFPAY | PROVIDERS: Admitting Provider Internal Medicine; Emergency Provider Emergency Medicine; Visit Provider Internal Medicine | DX: R06.02 Shortness of breath (principal) | CPT/HCPCS: 93010 ==

== ENCOUNTER → 2024-11-28 10:18 | Outpatient (BNV) | payer SELFPAY | PROVIDERS: Emergency Provider Emergency Medicine; Visit Provider Radiology Diagnostic Radiology | DX: R06.02 Shortness of breath (principal); R91.8 Other nonspecific abnormal finding of lung field; J81.0 Acute pulmonary edema; J90 Pleural effusion, not elsewhere classified | CPT/HCPCS: 71046; 71275 ==

== ENCOUNTER 2024-11-28 16:28 | Outpatient (BNV) | payer SELFPAY | END 2024-11-29 07:00 | PROVIDERS: Admitting Provider Internal Medicine; Emergency Provider Emergency Medicine; Visit Provider Internal Medicine | DX: I50.9 Heart failure, unspecified (principal) | CPT/HCPCS: 93306 ==

== ENCOUNTER → 2024-11-28 16:28 | Outpatient (BNV) | payer OTHER, SELFPAY | PROVIDERS: Admitting Provider Internal Medicine; Emergency Provider Emergency Medicine; Visit Provider Internal Medicine | DX: J45.901 Unspecified asthma with (acute) exacerbation (principal) | CPT/HCPCS: 99223; 99239; 99499 ==

== ENCOUNTER 2025-01-23 09:14 | Outpatient (AMB) | payer OTHER, SELFPAY ==
--- NOTE | 2025-01-23 09:15 | A.OFFVIS_ITS ---
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 The patient was recently seen in the emergency room for shortness of breath and increased dyspnea on exertion, with a history of COPD. During the ER evaluation, a chest x-ray showed bilateral pulmonary edema and bilateral pleural effusions. A CTA of the chest was negative for pulmonary embolism. Labs revealed an elevated troponin levels in the 60s and flat, along with mild normocytic anemia and no leukocytosis; the EKG showed no ischemic changes. An echocardiogram during admission showed a normal EF of 64% with no regional wall motion or significant valvular abnormalities.The patient was treated with IV Lasix, bronchodilators, and IV steroids, and was discharged after overnight observation with a 5-day course of prednisone and azithromycin. According to the patient's family, breathing improved for about 15 days post-d ischarge but wheezing and shortness of breath have returned in the last two to three days. The patient has a history of an unspecified heart problem diagnosed in [facility], and was on heart medication which was stopped approximately 1.5 years ago. The patient denies a history of heart attack or congestive heart failure but reports occasional palpitations, intermittent pinching chest pain, and dizziness when rising from a seated position, without syncope. The patient has a history of asthma and despite currently taking montelukast, guaifenesin, and albuterol, the patient continues to experience cough and shortness of breath. The patient's primary care provider has made a referral to a retail greeter, but an appointment has not yet been scheduled. The patient helps with emergency services professional and is able to ambulate and manage stairs. She [place] the [place] and [place], living with family members. She is original from [facility] and speaks that language. Katerina is assisting with translation today. [facility] Medical History COPD (chronic obstructive pulmonary disease) Hypothyroid Social History Alcohol intake: former Review of Systems Const All systems reviewed & are unremarkable except as noted in HPI and below ENT Denies dizziness Card Reports chest pain, Denies chest pain at rest, Denies chest pain with activity, Denies rapid heart rate, Denies pedal edema, Denies edema, Denies leg edema, Denies lightheadedness, Denies palpitations, Reports dyspnea, Reports dyspnea on exertion and Denies orthopnea Resp Denies cough, Reports dyspnea and Reports dyspnea on exertion GI Denies hematochezia and Denies change in stool character Musc Denies abnormal gait, Reports limited range of motion, Reports muscle cramps, Denies muscle weakness, Denies numbness, Denies radiating pain into limb, Denies stiffness and Denies tingling Neuro Denies abnormal gait, Denies dizziness, Denies numbness and Denies tingling Endo Denies palpitations Physical Exam Vital Signs: Last Vital Signs Pulse 68 01/23/25 09:16 BP 120/80 01/23/25 09:16 BMI result Body Mass Index 23.4 Const General: cooperative, healthy appearing, comfortable and no acute distress Orientation/consciousness: patient oriented x3 Neck Neck: Yes normal visual inspection Resp Effort & Inspection: normal respiratory effort Auscultation: clear to auscultation bilaterally, no rales, no rhonchi and no wheezes Cardio Rate: regular rate Rhythm: regular rhythm Heart sounds: S1 normal heart sound present, S2 normal heart sound present, no gallops, no murmurs and no rubs Neuro General: patient oriented x3 Extrem General: Yes normal to inspection, No no pedal edema and No calf tenderness Psych Appearance: grossly normal Mental Status: mental status grossly normal Speech and movement: Normal speech and movement present Assessment & Plan Assessment & Plan (1) Chest discomfort: Code(s): R07.89 - Other chest pain Category: Medical Plan: Reports of atypical sounding chest discomfort. Recent hospital evaluation with mildly elevated and flat troponins. EKG shows no ischemic findings. Recent echo showed normal EF and normal wall motion Will check an exercise nuclear stress test to evaluate for ischemia. Signs and symptoms of angina reviewed with them. Cardiology follow-up 6-8 weeks, sooner if needed (2) Shortness of breath: Code(s): R06.02 - Shortness of breath Category: Medical Plan: Shortness of breath with activity. Some coughing and wheezing consistent with asthma. She is on med management but reports symptoms have recently returned. She is having no respiratory difficulty on my exam today. Instructed to make appointment with pulmonology as directed. Will forward this note to her PCP. (3) Pulmonary edema: Code(s): J81.1 - Chronic pulmonary edema Category: Medical Qualifiers: Chronicity: acute Qualified Code(s): J81.0 - Acute pulmonary edema Plan: Recent hospital evaluation for shortness of breath. Chest x-ray did show findings consistent with pulmonary edema and pleural effusion. She was given IV Lasix. She was not discharged with diuretics. She does not appear fluid overloaded on exam today. No rales noted on exam. Echocardiogram showed normal EF and wall motion. Signs and symptoms of fluid overload reviewed with them. (4) Elevated troponin: Code(s): R79.89 - Other specified abnormal findings of blood chemistry Category: Medical Plan: As above (5) COPD (chronic obstructive pulmonary disease): Code(s): J44.9 - Chronic obstructive pulmonary disease, unspecified Category: Medical Plan: As above (6) Palpitation: Code(s): R00.2 - Palpitations Category: Medical Plan: Reports of rapid heartbeats at times causing concern. Will order Holter monitor for further evaluation. (7) Hospital discharge follow-up: Code(s): Z51.89 - Encounter for other specified aftercare Category: Medical Plan: Hospital discharge summary reviewed Plan I discussed with the patient and the patient's family that the recent hospitalization included an elevated troponin level, but because it was stable, it did not indicate a heart attack. I explained that the ultrasound of the heart (echocardiogram) showed that the heart is strong and pumping well, and that today the lungs sound clear. To investigate the reported chest pain and palpitations, I have ordered a nuclear stress test and a heart monitor. I explained that these tests will provide a better understanding of the heart's function and rhythm. I will send my note to the primary care doctor to inform them of the patient's persistent breathing issues despite current treatment. I instructed the family on how to make an appointment with the pulmonology department in this hospital to follow up on the PCP's referral. Orders: Orders ECG 3 day holter monitor Today J44.9 - Chronic obstructive pulmonary disease, unspecified, J81.0 - Acute pulmonary edema, R00.2 - Palpitations, R07.89 - Other chest pain CA stress test Today J44.9 - Chronic obstructive pulmonary disease, unspecified, J81.0 - Acute pulmonary edema, R00.2 - Palpitations, R07.89 - Other chest pain NM cardiolite stress test Today J44.9 - Chronic obstructive pulmonary disease, unspecified, J81.0 - Acute pulmonary edema, R00.2 - Palpitations, R07.89 - Other chest pain Medications: Discontinued azithromycin Discontinued Reason: Patient no longer taking 500 mg PO Q24H 5 days 5 tabs 0RF prednisone Discontinued Reason: Patient Completed Course 40 mg (2 x 20 mg) PO DAILY 10 tabs 0RF Patient Instructions: - We have ordered two tests to check your heart: a stress test where you will walk on a treadmill, and a heart monitor that is a sticker placed on your chest for a few days. - The hospital's scheduling department will call you to set up the appointments for these tests. - Please make an appointment with the lung specialist (pulmonology) as recommended by your primary doctor. - Their office is on the first floor of the [facility], in the far corner of the [facility]. - Continue to take your breathing medications as they have been prescribed. - Let your primary care doctor know that you are still having some trouble with your breathing. Patient was informed and verbally consented to the use of an ambient scribe for clinic note documentation during this visit. Visit time spent on chart review, interview, assessment, orders, documentation. Coding Level of Care Code New Pt Level 4 (07031) Complex visit Add On G2211 Diagnoses Chest discomfort R07.89 Shortness of breath R06.02 Pulmonary edema J81.0 Chronicity: acute Elevated troponin R79.89 COPD (chronic obstructive pulmonary disease) J44.9 Palpitation R00.2 Hospital discharge follow-up Z51.89 Time Spent (min) 32
[2025-01-23 09:16] VITALS: BP 120/80; PULSE 68; BMI 23.4
== END 2025-01-23 09:51 | disposition home or self-care (01) ==
LOC: HO.HCS 09:14
PROVIDERS: Visit Provider Nurse Practitioner Family
DX: R07.89 Other chest pain (principal); R06.02 Shortness of breath; J81.0 Acute pulmonary edema; R79.89 Other specified abnormal findings of blood chemistry; J44.9 Chronic obstructive pulmonary disease, unspecified; R00.2 Palpitations; Z51.89 Encounter for other specified aftercare
CPT/HCPCS: 99204